=== PATIENT | female | born 1985 | race Caucasian/White ===

== ENCOUNTER 2017-02-15 10:32 | Inpatient (IN) | payer BC ==
--- NOTE | 2017-02-14 20:34 | PDOC.LDHP ---
Labor and Delivery H&P Chief complaint: scheduled section HPI: 31 y/o WF at 39 weeks by EDC of 02/20. H/o prioe c/s x 2. Current gestational age (weeks): 39 Due date: 02/20/17 Dating criteria: last menstrual period Grav: 3 Para: 2 Current complications: none Abnormal US findings: No Current medications: pre-omega vitamins Previous surgical history: low tranverse CS Social history: none - Physical Exam General: NAD, resting, breathing through contractions, other Heart: RRR Lungs: CTAB Abdomen: gravid Extremeties: no edema FHT: category 1 - OB Labs Blood type: AB RH: positive HIV: negative RPR: negative HEPSAg: negative 1 hour GCT: negative GBS: negative Urine drug screen: not done - Plan Plan: to OR for section, informed consent obtained, anesthesia consult for pain management
[~2017-02-15 10:32] MED LIST: Bicitra 30 ML UDCUP PO SCH; Ondansetron HCl/PF 4 MG/2 ML Vial IVP PRN; Promethazine HCl 25 MG/ML VIAL IM PRN
[2017-02-15 10:57] VITALS: BMI 25.1
[2017-02-15] MEDS: Lactated Ringer's 1,000 ML IV SCH ×2 (11:08→13:37)
[2017-02-15 11:16] LABS: Hematocrit 35.2 % (36.0-47.0); Mean Platelet Volume 9.3 fL (7.4-10.4); Red Blood Cell (RBC) Count 4.28 mill/uL (4.20-5.40); White Blood Cell (WBC) Count 9.2 thou/uL (4.8-10.8)
[2017-02-15] MEDS ORDERED: Ondansetron HCl/PF 4 MG/2 ML Vial ONE (11:42)
[2017-02-15] MEDS ORDERED: ePHEDrine/0.9% NaCl/PF SYRINGE 50 mg/10 ml ONE (11:42)
[2017-02-15] MEDS ORDERED: Oxytocin 10 UNITS/ML VIAL ONE (11:42)
[2017-02-15] MEDS ORDERED: Adacel (T-DAP) 0.5 ML VIAL IM ONE (12:34)
[2017-02-15] MEDS ORDERED: Lanolin Ointment 7 GM TUBE TOP PRN (12:34)
[2017-02-15] MEDS ORDERED: Bisacodyl 10 MG SUPP PR PRN (12:34)
[2017-02-15] MEDS ORDERED: diphenhydrAMINE HCl 25 MG CAP PO PRN (12:34)
--- NOTE | 2017-02-15 12:36 | PDOC.OPDEL ---
OB Operative/Delivery Note Delivery Dr/Surgeon: Nolan Pre-Delivery Diagnosis: scheduled section Procedure/Post Delivery Dx: repeat low transverse CS Weeks gestation: 39 Anesthesia: spinal - Findings A Sex: male Weight: 7 lb 1 oz - 5 min: 8 - 10 min: 9 - Additional Findings/Plan Placenta delivered: manual removal findings: low transverse hysterotomy with extension, normal uterus, normal tubes Estimated blood loss: 500ml Post delivery plan: routine recovery
[2017-02-15] MEDS ORDERED: LR w/ Pitocin 40 units/1000 ML BAG IV SCH (12:45)
[2017-02-15] MEDS ORDERED: Ketorolac Tromethamine 30 MG/ML VIAL ONE (14:12)
[2017-02-15] MEDS ORDERED: Promethazine HCl 25 MG/ML VIAL IM PRN (14:21)
[2017-02-15] MEDS ORDERED: Naloxone HCl 0.4 mg/ml Vial IVP PRN ×2 (14:21)
[2017-02-15] MEDS ORDERED: Naloxone HCl 0.4 mg/ml Vial IV PRN (14:21)
[2017-02-15] MEDS ORDERED: Eucerin (Mineral Oil/Petrolatum,White) 30 gm Jar TOP PRN (14:21)
[2017-02-15] MEDS ORDERED: diphenhydrAMINE HCl 50 MG/ML 1 ML VIAL IVP PRN (14:21)
[2017-02-15] MEDS ORDERED: Meperidine HCl/PF 25 MG/ML VIAL SLOW IVP PRN (14:21)
[2017-02-15] MEDS ORDERED: HYDROmorphone 2 MG/ML VIAL SLOW IVP PRN (14:21)
[2017-02-15] MEDS ORDERED: Promethazine HCl 25 MG SUPP PR PRN (14:21)
[2017-02-15] MEDS ORDERED: Ondansetron HCl/PF 4 MG/2 ML Vial IVP PRN ×2 (14:21)
[2017-02-15] MEDS ORDERED: Ketorolac Tromethamine 30 MG/ML VIAL IVP SCH (14:30)
[2017-02-15] MEDS ORDERED: Communication Order-Pharmacy FS SCH (14:30)
[2017-02-15] MEDS ORDERED: Meperidine HCl/PF 25 MG/ML VIAL ONE (14:33)
[2017-02-15] MEDS: Ibuprofen 800 MG TAB PO SCH ×2 (14:43→23:25)
--- NOTE | 2017-02-15 17:01 | OP ---
DATE OF PROCEDURE: 02/15/2017 PREOPERATIVE DIAGNOSES: A 31-year-old white female G3, P2 at 39 weeks gestation, prior section x2 for repeat. POSTOPERATIVE DIAGNOSES: A 31-year-old white female G3, P2 at 39 weeks gestation, prior section x2 for repeat. PROCEDURE PERFORMED: Repeat low transverse section. SURGEON: Cyndi Francisco M.D. [employer]RARY CLERK SURGEON: Anette Diaz D.O. ANESTHESIA: Spinal block. ESTIMATED BLOOD LOSS: 500 mL COMPLICATIONS: None. COUNTS: Correct x2. ANTIBIOTICS: Two grams Ancef personnel counselor to the OR. FINDINGS: 1. Vigorous male , vertex presentation, Apgars 8 and 9, weight 7 pounds 1 ounce. Clear amniotic fluid noted. 2. Normal appearing fallopian tubes and ovaries. Uterus lower uterine segments noted to be very th in, but no open window was noted. 3. Clear urine present in Regalado catheter post procedure. DISPOSITION: To the recovery room stable. DESCRIPTION OF OPERATIVE PROCEDURE: The patient previously received informed consent in regards to surgery. She was taken back to the operating room where she received a spinal block without complic ations. She was placed in supine position, prepped and draped in usual sterile fashion. Pfannensti el incision was made through the previous scar site. It was carried down to the fascia. Fascia was nicked in midline. Fascial incision was extended bilaterally with the use of curved Camacho scissors. Rectus muscle belly was then dissected superiorly and inferiorly off the rectus muscle bellies. T he rectus muscle bellies were divided in the midline. The peritoneal cavity was entered. Bladder b lade was placed. Bladder flap was created in usual fashion. A 2 cm hysterotomy incision was made i n the lower uterine segment. This was extended via finger fractionation. The amniotic bag was then ruptured. Clear fluid returned. The baby was delivered in vertex presentation. Mouth and nares o f the infant was bulb suctioned on the abdomen. The cord was doubly clamped and cut and handed to p ediatric nurse practitioner in attendance. Usual cord blood was obtained. Placenta was manually ex tracted. Uterus was externalized. Uterus curetted of any remaining placental fragments with a dry laparotomy sponge. Hysterotomy incision was closed with running locking #1 Monocryl suture and ramirez tional purse-string [id number] suture was placed in the left lower incision, hysterotomy site t o reinforce a small window that was noted after closure. Hemostasis along the hysterotomy site was confirmed. The uterus returned back into the abdomen. Pelvis irrigated and suctioned. Hemostasis was confirmed. Clear urine was draining from the Regalado catheter. The rectus muscle bellies were no liane to be hemostatic prior to fascial closure. The fascia was closed with 0 PDS suture x2 in runnin g continuous fashion. Subcuticular tissue was noted to be hemostatic. Skin was approximated with s taples. Surgery was terminated. No anesthetic or surgical complications.
[2017-02-15] MEDS: Docusate (Surfak) 240 MG CAP PO SCH (21:17)
[2017-02-15] MEDS: Simethicone Chewable 80 MG TAB PO PRN (21:17)
[2017-02-16] MEDS: Ketorolac Tromethamine 30 MG/ML VIAL IVP PRN ×2 (01:23→08:17)
[2017-02-16 05:49] LABS: Mean Platelet Volume 8.9 fL (7.4-10.4); Red Blood Cell (RBC) Count 3.47 mill/uL (4.20-5.40); White Blood Cell (WBC) Count 8.1 thou/uL (4.8-10.8)
[2017-02-16] MEDS: Ibuprofen 800 MG TAB PO SCH ×3 (06:22→21:04)
--- NOTE | 2017-02-16 07:46 | PDOC.PP ---
Post Progress Note Post Day #: 1 PO intake tolerated: yes Flatus: yes Ambulation: yes Vital Signs (12 hours) Temp Pulse Resp BP 02/16/17 05:30 98.1 F 78 16 114/60 02/16/17 00:00 99.1 F 87 16 117/58 L 02/15/17 20:00 98.2 F 81 16 131/75 Weight Weight 170 lb - Physical Examination General: NAD Cardiovascular: no m/r/g, RRR Respiratory: clear to ausculation bilateral Abdominal: + bowel sounds, lochia, no distention, appropriately TTP Result Diagrams: 02/16/17 05:31 Additional Labs: Post Labs Blood Type AB POSITIVE 02/15/17 11:07 Hep Bs Antigen Non-Reactive S/CO (NonReactive) 02/15/17 11:07 - Assessment/Plan post op day 1 repeat c/doing well routine post op care
[2017-02-16] MEDS: Prenatal Vitamin 1 TAB PO SCH (08:17)
[2017-02-16] MEDS: Docusate (Surfak) 240 MG CAP PO SCH ×2 (08:17→19:37)
[2017-02-16] MEDS: Simethicone Chewable 80 MG TAB PO PRN ×2 (08:19→19:37)
[2017-02-17] MEDS: Ibuprofen 800 MG TAB PO SCH ×3 (05:45→21:24)
--- NOTE | 2017-02-17 08:26 | PDOC.PP ---
Post Progress Note Post Day #: 2. More sore today. PO intake tolerated: yes Flatus: yes Ambulation: yes Vital Signs (12 hours) Temp Pulse Resp BP 02/17/17 07:55 98.7 F 97 18 129/76 02/17/17 07:35 98.7 F 97 18 02/17/17 00:00 97.7 F 78 20 124/86 Weight Weight 170 lb - Physical Examination General: NAD Cardiovascular: no m/r/g, RRR Respiratory: clear to ausculation bilateral Abdominal: + bowel sounds, lochia, no distention, appropriately TTP Result Diagrams: 02/16/17 05:31 Additional Labs: Post Labs Blood Type AB POSITIVE 02/15/17 11:07 Hep Bs Antigen Non-Reactive S/CO (NonReactive) 02/15/17 11:07 - Assessment/Plan post op day 2-repeat c/s. doing well. D/c in AM. Tramadol for pain.
[2017-02-17] MEDS: Docusate (Surfak) 240 MG CAP PO SCH ×2 (08:59→21:24)
[2017-02-17] MEDS: Prenatal Vitamin 1 TAB PO SCH (08:59)
[2017-02-17] MEDS: traMADol HCl 50 MG TAB PO PRN ×3 (08:59→22:38)
[2017-02-17] MEDS: Simethicone Chewable 80 MG TAB PO PRN (15:53)
[2017-02-18] MEDS: Ibuprofen 800 MG TAB PO SCH (05:55)
[2017-02-18] MEDS: traMADol HCl 50 MG TAB PO PRN (05:59)
[2017-02-18 08:14] VITALS: BP 134/75; TEMP 98.7
--- NOTE | 2017-02-18 08:21 | PDOC.PP ---
Post Progress Note Post Day #: 3 PO intake tolerated: yes Flatus: yes Ambulation: yes Vital Signs (12 hours) Temp Pulse Resp BP 02/18/17 08:13 98.7 F 87 16 134/75 Weight Weight 170 lb - Physical Examination General: NAD Cardiovascular: no m/r/g, RRR Respiratory: clear to ausculation bilateral Abdominal: + bowel sounds, lochia, no distention, appropriately TTP Result Diagrams: 02/16/17 05:31 Additional Labs: Post Labs Blood Type AB POSITIVE 02/15/17 11:07 Hep Bs Antigen Non-Reactive S/CO (NonReactive) 02/15/17 11:07 - Assessment/Plan doing well post op day 3 d/c home f/u post op day 7 and 6 weeks.
[2017-02-18] MEDS: Prenatal Vitamin 1 TAB PO SCH (09:15)
[2017-02-18] MEDS: Docusate (Surfak) 240 MG CAP PO SCH (09:15)
== END 2017-02-18 12:30 | disposition home or self-care (01) | DRG 766 ==
LOC: L&D 10:32 → OBSVTOIN 10:32 → 3SW 15:48
PROVIDERS: ADMIT Obstetrics & Gynecology; ATTEND Obstetrics & Gynecology
PROC: 10D00Z1 Extraction of Products of Conception, Low, Open Approach (ICD-10-PCS; principal; 2017-02-15)
DX: O34.211 Maternal care for low transverse scar from previous cesarean delivery (principal); Z37.0 Single live birth; Z3A.39 39 weeks gestation of pregnancy
CPT/HCPCS: 36415; 85027; 86780; 86850; 86900; 86901; 87340; 90715; J1885; J2175; J2274; J2405; J2590